=== PATIENT | female | born 1985 | race Caucasian/White ===

== ENCOUNTER 2021-08-07 16:56 | Emergency (ER) | payer BC ==
[~2021-08-07] VITALS: Ht 160 cm; Wt 136.0 kg
[~2021-08-07 16:56] MED LIST: LURA40TA PO
[2021-08-07 17:08] VITALS: BP 151/96
[2021-08-07] MEDS ORDERED: HYDROcodone/APAP 5/325MG 1 TAB TABLET PO ONE (17:15)
--- NOTE | 2021-08-07 17:18 | PHYS DOC ---
Past History Past Medical History: Depression (AVINASH RIZZO APRN) Past Surgical History: No Surgical History (AVINASH RIZZO APRN) Alcohol Use: None Drug Use: None (AVINASH RIZZO APRN) General Adult EDM: Chief Complaint: UPPER EXTREMITY PAIN HPI: HPI: Patient is a 35-year-old female presents with left elbow and left knee pain after a fall at [facility]. Patient states that she was chasing her toddler through the store when she tripped and fell. Patient was able to ambulate on her own out of the store. Patient has full range of motion. Pain increases with movement. Denies taking anything for pain prior to arrival. Denies hitting her head or loss of consciousness. (AVINASH RIZZO APRN) Review of Systems: Review of Systems: Constitutional: Denies fever or chills Eyes: Denies change in visual acuity HENT: Denies nasal congestion or sore throat Respiratory: Denies cough or shortness of breath Cardiovascular: Denies chest pain or edema GI: Denies abdominal pain, nausea, vomiting, bloody stools or diarrhea : Denies dysuria Musculoskeletal: Denies back pain or joint pain Integument: Denies rash Neurologic: Denies headache, focal weakness or sensory changes Endocrine: Denies polyuria or polydipsia Lymphatic: Denies swollen glands Psychiatric: Denies depression or anxiety (AVINASH RIZZO APRN) Allergies: Allergies: Allergies Coded Allergies Type Severity Reaction Last Updated Verified No Known Drug Allergies 03/06/16 No (AVINASH RIZZO APRN) Physical Exam: PE: Constitutional: Well developed, well nourished, no acute distress, non-toxic appearance. [] HENT: Normocephalic, atraumatic, bilateral external ears normal, oropharynx moist, no oral exudates, nose normal. [] Eyes: PERRLA, EOMI, conjunctiva normal, no discharge. [] Neck: Normal range of motion, no tenderness, supple, no stridor. [] Cardiovascular:Heart rate regular rhythm, no murmur [] Lungs & Thorax: Bilateral breath sounds clear to auscultation [] Abdomen: Bowel sounds normal, soft, no tenderness, no masses, no pulsatile masses. [] Skin: Warm, dry, no erythema, no rash. [] Back: No tenderness, no CVA tenderness. [] Extremities: Left elbow tenderness, left knee tenderness, no cyanosis, no clubbing, ROM intact, no edema. [] Neurologic: Alert and oriented X 3, normal motor function, normal sensory function, no focal deficits noted. [] Psychologic: Affect normal, judgement normal, mood normal. [] (AVINASH RIZZO APRN) Current Patient Data: Vital Signs: Vital Signs Date Time Temp Pulse Resp B/P (MAP) Pulse Ox O2 Delivery O2 Flow Rate FiO2 08/07/21 17:08 98.0 105 18 151/96 (114) 97 (AVINASH RIZZO APRN) EKG: EKG: [] (AVINASH RIZZO APRN) Radiology/Procedures: Radiology/Procedures: []XR KNEE _4 VIEWS WITH PATELLA_LT DATE: 08/07/2021 5:08 PM INDICATION: FALL COMPARISON: None. FINDINGS: Bones: There is no evidence of acute fracture or dislocation. Joints: The joint spaces are normal. There is no joint effusion. Miscellaneous: None. IMPRESSION: No evidence of acute fracture. Electronically signed by: Sunny Zarate MD (08/07/2021 5:39 PM) [facility] XR ELBOW COMPLETE_LEFT 3+VIEWS DATE: 08/07/2021 5:08 PM INDICATION: FALL COMPARISON: None. FINDINGS: Bones: There is no evidence of acute fracture or dislocation. Joints: The joint spaces are normal. There is no joint effusion. Miscellaneous: None. IMPRESSION: No evidence of acute fracture. Electronically signed by: Sunny Zarate MD (08/07/2021 5:35 PM) [facility] (AVINASH RIZZO APRN) Heart Score: C/O Chest Pain: No Risk Factors: Risk Factors: DM, Current or recent (<one month) smoker, HTN, HLP, family history of CAD, obesity. Risk Scores: Score 0 - 3: 2.5% MACE over next 6 weeks - Discharge Home Score 4 - 6: 20.3% MACE over next 6 weeks - Admit for Clinical Observation Score 7 - 10: 72.7% MACE over next 6 weeks - Early Invasive Strategies (AVINASH RIZZO APRN) Course & Med Decision Making: Course & Med Decision Making Pertinent Labs and Imaging studies reviewed. (See chart for details) [] Left elbow and left knee x-ray ordered to rule out fracture. Patient given 5/25 hydrocodone for pain. Knee and elbow x-ray was negative for fracture. Discussed results with patient. Rice instructions given. Tylenol and ibuprofen at home. Advised patient to follow-up with PCP if pain does not improve. (AVINASH RIZZO APRN) Course & Med Decision Making I was the Attending physician on the above date of service of this patient. This patient was evaluated, examined, treated, and dispositioned from the emergency department by the mid-level practitioner. Although I was working at the time , no assistance was requested. Electronically signed, Graeme Strange DO (GRAEME STRANGE DO) Halie Disclaimer: Halie Disclaimer: This electronic medical record was generated, in whole or in part, using a voice recognition dictation system. (AVINASH RIZZO APRN) Departure Departure: Impression: Primary Impression: Fall Qualified Codes: W19.XXXA - Unspecified fall, initial encounter Additional Impressions: Knee pain Qualified Codes: M25.562 - Pain in left knee Elbow pain, left Disposition: HOME / SELF CARE / HOMELESS Condition: STABLE Referrals: ARGELIA TORRES MD (PCP) Patient Instructions: Knee Pain, [id number], RICE - Routine Care for Injuries Additional Instructions: You were seen in the emergency room after a fall at the grocery store. X-ray of your left elbow and knee were both negative for fracture. You were given hydrocodone while in the ER treat pain. Use ibuprofen and Tylenol at home for discomfort along with ice and rest. Follow-up with your PCP in the next few days if pain does not improve. Return to the emergency room with worsening symptoms or concerns. EMERGENCY DEPARTMENT GENERAL DISCHARGE INSTRUCTIONS Thank you for coming to [facility] (ED) today and trusting us with you care. We trust that you had a positivie experience in our Emergency Department. If you wish to speak to the department management, you may call the director at [phone]. YOUR FOLLOW UP INSTRUCTIONS ARE FOLLOWS: 1. Do you have a private Doctor? If you do not have a private doctor, please ask for a resource list of physicians or clinics that may be able to assist you with follow up care. 2. The Emergency Physician has interpreted your x-rays. The X-Ray specialist will also review them. If there is a change in the findings, you will be notified in 48 hours when at all possible. 3. A lab test or culture has been done, your results will be reviewed and you will be notified if you need a change in treatment. ADDITIONAL INSTRUCTIONS AND INFORMATION: 1. Your care today has been supervised by a physician who is specially trained in emergency care. Many problems require more than one evaluation for a complete diagnosis and treatment. We recommend that you schedule your follow up appointment as recommended to ensure complete treatment of you illness or injury. If you are unable to obtain follow up care and continue to have a problem, or if your condition worsens, we recommend that you return to the ED. 2. We are not able to safely determine your condition over the phone nor are we able to give sound medical advice over the phone. For these safety reasons, if you call for medical advice we will ask you to come to the ED for further evaluation. 3. If you have any questions regarding these discharge instructions please call the ED at [phone]. SAFETY INFORMATION: In the interest of safety, wellness, and injury prevention; we encourage you to wear your sealbelt, if you smoke; quite smoking, and we encourage family to use a protective helmet for bicycling and other sporting events that present an increased risk for head injury. IF YOUR SYMPTOMS WORSEN OR NEW SYMPTOMS DEVELOP, OR YOU HAVE CONCERNS ABOUT YOUR CONDITION; OR IF YOUR CONDITION WORSENS WHILE YOU ARE WAITING FOR YOUR FOLLOW UP APPOINTMENT; EITHER CONTACT YOUR PRIMARY CARE DOCTOR, THE PHYSICIAN WHOSE NAME AND NUMBER YOU WERE GIVEN, OR RETURN TO THE ED IMMEDIATELY. AVINASH RIZZO APRN Aug 07, 2021 17:18 GRAEME STRANGE DO Aug 11, 2021 14:53
--- NOTE | 2021-08-07 17:38 | RAD ---
XR ELBOW COMPLETE_LEFT 3+VIEWS DATE: 08/07/2021 5:08 PM INDICATION: FALL COMPARISON: None. FINDINGS: Bones: There is no evidence of acute fracture or dislocation. Joints: The joint spaces are normal. There is no joint effusion. Miscellaneous: None. IMPRESSION: No evidence of acute fracture. Electronically signed by: Sunny Zarate MD (08/07/2021 5:35 PM) [facility]
--- NOTE | 2021-08-07 17:42 | RAD ---
XR KNEE _4 VIEWS WITH PATELLA_LT DATE: 08/07/2021 5:08 PM INDICATION: FALL COMPARISON: None. FINDINGS: Bones: There is no evidence of acute fracture or dislocation. Joints: The joint spaces are normal. There is no joint effusion. Miscellaneous: None. IMPRESSION: No evidence of acute fracture. Electronically signed by: Sunny Zarate MD (08/07/2021 5:39 PM) [facility]
== END 2021-08-07 17:59 | disposition home or self-care (01) ==
LOC: ER 16:56
DX: M25.562 Pain in left knee (principal); M25.522 Pain in left elbow; F32.9 Major depressive disorder, single episode, unspecified; W01.0XXA Fall on same level from slipping, tripping and stumbling without subsequent striking against object, initial encounter; Y93.89 Activity, other specified; Y92.89 Other specified places as the place of occurrence of the external cause; Y99.8 Other external cause status
CPT/HCPCS: 73080; 73564; 99284